=== PATIENT | female | born 1965 | race Hispanic/Latino ===

== ENCOUNTER 2019-02-09 21:53 | Emergency (ER) | payer MEDICARE ==
[2019-02-09] MEDS ORDERED: TETRACAINE HCL 0.5% 4 ML OPHTH SOLN ONE (22:16)
[2019-02-09] MEDS ORDERED: NA BORATE/BORIC AC/H2O/NACL 120 ML OPHTH IRRIG SOLN ONE (22:16)
[2019-02-09] MEDS ORDERED: FLUORESCEIN SODIUM 1 STRIP STRIP ONE (22:17)
== END 2019-02-09 23:43 | disposition home or self-care (01) ==
LOC: EDH 21:53
DX: S05.91XA Unspecified injury of right eye and orbit, initial encounter (principal); Z79.899 Other long term (current) drug therapy; X58.XXXA Exposure to other specified factors, initial encounter; Y93.89 Activity, other specified; Y92.89 Other specified places as the place of occurrence of the external cause; Y99.8 Other external cause status